=== PATIENT | male | born 1995 | race Caucasian/White ===

== ENCOUNTER 2018-05-31 19:33 | Emergency (ER) | payer OTHER ==
[~2018-05-31] VITALS: Ht 177.8 cm; Wt 60.0 kg
[2018-05-31 19:41] VITALS: BP 141/62; PULSE 110; RESP 16; Ht 177.8 cm; Wt 60.0 kg
[2018-05-31] MEDS ORDERED: LIDOCAINE 1% (MDV) 20 ML INJ SC ONE (22:30)
[2018-05-31] MEDS ORDERED: TRIMETHOPRIM/SULFAMETHOX (DS) TAB PO ONE (23:30)
[2018-05-31] MEDS ORDERED: CEPHALEXIN 500 MG CAP PO ONE (23:30)
[2018-05-31] MEDS ORDERED: SULF1TAB31 PO (23:40)
[2018-05-31] MEDS ORDERED: CEPH-443 PO (23:40)
[2018-05-31] MEDS ORDERED: HYDR-4011 PO (23:42)
--- NOTE | 2018-05-31 23:59 | ERD ---
ER Documentation Chief Complaint Chief Complaint RIGHT THUMB PAIN, SWELLING X 2 DAYS HPI 23-year-old male with no past medical or surgical history who presents with right thumb swelling, erythema, pain. States he noticed worsening swelling to right thumb 4 days ago subsequently with worsening pain. He denies any history of trauma to the area. Denies any history of insect or animal bite. He denies any fever or chills or recent illness. States he did not notice an open wound or cut to right thumb prior to onset of swelling. He denies any active drug use. Reports all vaccinations up-to-date. ROS All systems reviewed and are negative except as per history of present illness. Medications Home Meds Active Scripts Hydrocodone/Acetaminophen ([place] 5-325 Tablet) 1 Each Tablet, 1 TAB PO Q6H PRN for PAIN, #7 TAB Prov:JEUDINE,GETHO PA-C 05/31/18 Sulfamethoxazole/Trimethoprim* (Bactrim Ds* Tablet) 1 Each Tablet, 1 TAB PO BID, #6 TAB Prov:JEUDINE,GETHO PA-C 05/31/18 Cephalexin* (Keflex*) 500 Mg Capsule, 500 MG PO QID for 9 Days, CAP Prov:JEUDINE,GETHO PA-C 05/31/18 PMhx/Soc Medical and Surgical Hx: pt denies Medical Hx, pt denies Surgical Hx Hx Alcohol Use: No Hx Substance Use: No Hx Tobacco Use: No Smoking Status: Never smoker FmHx Family History: No diabetes, No coronary disease, No other Physical Exam Vitals Vital Signs Date Temp Pulse Resp B/P (MAP) Pulse Ox O2 O2 Flow FiO2 Time Delivery Rate 05/31/18 97.5 110 16 141/62 98 19:41 (88) Physical Exam I have reviewed the triage vital signs. Const: Well nourished, well developed, appears stated age HENT: NCAT, Neck supple without meningismus CV: RRR, Warm, well-perfused extremities RESP: CTAB, Unlabored respiratory effort GI: soft, non-tender, non-distended, no masses MSK: R thumb with significant swelling, area of raised skin with induration to palmar side of R thumb, exquisitely tender on exam, no open wound or signs of skin breakage, SILT to thumb and rest of hand, able to move thumb although with pain, 2 plus cap refill Neuro: Alert, grossly intact. Sensation and motor function of extremities grossly intact. Psych: Appropriate mood and affect. Results 24 hrs Current Medications Medications Dose Sig/Henry Start Time Status Last (Trade) Ordered Route PRN Stop Time Admin Dose Reason Admin Lidocaine 20 ml ONCE ONCE 05/31/18 DC (Xylocaine SC 22:30 1% (Mdv) 20 05/31/18 22:31 ml) Cephalexin 500 mg ONCE ONCE 05/31/18 DC 05/31/18 (Keflex) PO 23:30 23:38 05/31/18 23:32 1 tab ONCE ONCE 05/31/18 DC 05/31/18 Trimethoprim/ PO 23:30 23:38 05/31/18 23:32 Sulfamethoxaz ole (Bactrim (Ds)) Procedures/MDM 23 yo M with R thumb abscess. Low suspicion for phalen. Nonseptic in appearance. neurovascularly intact by exam. with good distal perfusion. Low c/f osteomyelitis as no risk factors. No immune compromise, bullae, pain out of proportion, or rapid progression c/f necrotizing fasciitis. ED Intervention: Patients R thumb abscess has been incised with acceptable resolution Rx: Bactrim DS BID and Keflex now and on discharge, pain R x with norco for severe pain Disposition: At this point, patient is stable for discharge, advised to follow up with primary care physician in 48 hours. Patient advised to return in 2 days for wound check. I and D Attention at this point was placed on the patients R thumb where the abscess is located. The skin was prepped and cleansed Lidocaine 1% was injected into the dome of the abscess. Once analgesia was obtained, a small blade scalpel was used to make a small incision into the abscess. The total length of this incision was approx. 1cm. At this point moderate amount of bloody, purulent fluid was expressed. The patient tolerated this procedure well and there were no complications. A dry sterile dressing was placed. Departure Diagnosis: Primary Impression: Abscess of finger of right hand Condition: Stable Patient Instructions: Abscess Drainage, Abscess, Incision And Drainage Referrals: COMM[facility] YOU HAVE RECEIVED A MEDICAL SCREENING EXAM AND THE RESULTS INDICATE THAT YOU DO NOT HAVE A CONDITION THAT REQUIRES URGENT TREATMENT IN THE EMERGENCY DEPARTMENT. FURTHER EVALUATION AND TREATMENT OF YOUR CONDITION CAN WAIT UNTIL YOU ARE SEEN IN YOUR DOCTORS OFFICE WITHIN THE NEXT 1-2 DAYS. IT IS YOUR RESPONSIBILITY TO MAKE AN APPOINTMENT FOR [facility]. IF YOU HAVE A PRIMARY DOCTOR --you should call your primary doctor and schedule an appointment IF YOU DO NOT HAVE A PRIMARY DOCTOR YOU CAN CALL OUR PHYSICIAN REFERRAL HOTLINE AT IF YOU CAN NOT AFFORD TO SEE A PHYSICIAN YOU CAN CHOSE FROM THE FOLLOWING [facility] [address] [facility] [address] [facility] [facility] [address] [facility] [address] [facility] [facility] [address] [facility]. [facility] [address] Additional Instructions: Return to ED in 2 days for wound check. If symptoms worsen present ot nearest ED. COLEMAN CHOWDHURY PA-C May 31, 2018 23:58
== END 2018-06-01 00:07 | disposition home or self-care (01) ==
LOC: FTE 19:33
DX: L02.511 Cutaneous abscess of right hand (principal)
CPT/HCPCS: 10060; Z7502; Z7610